=== PATIENT | male | born 2005 | race Two or more races ===

== ENCOUNTER 2024-07-26 09:04 | Emergency (ER) | payer SELFPAY ==
[2024-07-26 09:17] VITALS: BP 135/74; PULSE 84; RESP 16; TEMP 37.2; O2SAT 98; BMI 28.7
--- NOTE | 2024-07-26 09:26 | XR_ITS ---
Examination: Testicular sonography complete Technique: Grayscale sonographic images testes, assessment arterial inflow venous outflow Doppler spectral analysis, flow analysis Exam date and time: July 26, 2024 1030 hrs. Indications: Injury to the testicles this morning at work with left testicular pain Findings: Right testis 4.2 x 2.2 x 3.4 cm Epididymis 1.2 cm Arterial flow testicle. No testicular mass Mild hydrocele Left testis 4.8 x 2.4 x 3.2 cm Epididymis 11 mm Left epididymal cysts, the largest 3 mm Arterial flow to the testicle. No testicular mass Mild hydrocele Moderate varicocele Point region Impression: No testicular torsion or testicular mass Moderate left varicocele
[2024-07-26] MEDS: KETOROLAC INJ 60 MG/2 ML VIAL IM (09:45)
--- NOTE | 2024-07-26 09:56 | EDRME_ITS ---
Rapid Medical Screening Exam E Arrival date/time: 07/26/24 09:04 This is a 18-year-old male that comes into the emergency room with complaints of trauma to his testicle. Patient states that a cart at work got loose and hit him in his testicle region. Patient states he has pain to his left testicle. Patient was seen at the [facility] and was told to come here today because of left testicular swelling and they wanted an ultrasound. Patient denies any other trauma. Patient denies any past medical history. I have greeted and performed a focused initial assessment of this patient. Initial appropriate labs ordered at this time. A comprehensive ED assessment and evaluation of the patient and analysis of all test and completion of medical decision making process will be conducted by additional ED provider. Chief Complaint: Urogenital-Male Time Seen by Provider: 07/26/24 09:06 Vital signs: Vital Signs Temperature 98.9 F 07/26/24 09:17 Pulse Rate 84 07/26/24 09:17 Respiratory Rate 16 07/26/24 09:17 Blood Pressure 135/74 H 07/26/24 09:17 Pulse Oximetry (%) 98 07/26/24 09:17 Oxygen Delivery Method Room Air 07/26/24 09:17
[2024-07-26 10:01] LABS: Collection Type, Urine Voided; Squamous Epithelial Cell,Urine 0 /hpf (0-5)
[2024-07-26 10:59] LABS: Bilirubin,Urine Negative (Negative); Blood,Urine Negative (Negative); Clarity,Urine Clear (Clear/Hazy); Color,Urine Lt-Yellow (Lt Yel-Yel); Culture Indicated,Urine Not Indicated; Glucose, Urine Negative (Negative); Ketones,Urine Negative (Negative); Leukocyte Esterase,Urine Negative (Negative); Nitrite,Urine Negative (Negative); Protein,Urine Negative (Neg - Trace); RBC,Urine 1 /hpf (0-3); Specific Gravity,Urine 1.013 (1.001-1.035); Urobilinogen,Urine Negative mg/dL (0.0-1.0); WBC,Urine < 1 /hpf (0-5)
--- NOTE | 2024-07-26 12:13 | PD.EDMALE ---
ED Male Genitalurinary RME/HPI General Chief complaint: Urogenital-Male Stated complaint: Swollen left testicle since this morning Time Seen by Provider: 07/26/24 09:06 Arrival date/time: 07/26/24 09:04 RME / HPI RME / HPI Narrative: 18-year-old male that comes into the emergency room with complaints of trauma to his testicle. Patient states that a cart at work got loose and hit him in his testicle region. Patient states he has pain to his left testicle. Patient was seen at the [facility] and was told to come here today because of left testicular swelling and they wanted an ultrasound. Patient denies any other trauma. Patient denies any past medical history. Patient denies any dysuria. Related Data Previous Rx's ?Medication ?Instructions ?Recorded ibuprofen 800 mg tablet 800 mg PO TID PRN pain #30 tabs 07/26/24 Allergies Allergy/AdvReac Type Severity Reaction Status Date / Time No Known Allergies Allergy Verified 07/26/24 09:10 Review of Systems Review of Systems Narrative Review of Systems: Review of system reviewed and within normal limits except mentioned in HPI ED Exam Narrative Physical exam: VITAL SIGNS: Reviewed. GENERAL APPEARANCE: Alert and interactive, follows commands, no acute distress, HEAD AND FACE: Non-traumatic. ENT: PERRL, pink conjunctivitis, eyelid no trauma, Mucous membrane moist. NECK: Supple, nontender, no nuchal rigidity. CHEST: No tenderness, no crepitus, no paradoxical movement, no retractions. LUNGS: Clear, well ventilated, symmetric, no rales, no wheezing, no ronchi, no stridor, good breath sounds bilaterally. HEART: Regular rate, regular rhythm, no murmur, no gallops. ABDOMEN: Soft, positive bowel sounds, nondistended, no guarding, nontender, no rebound, no masses, RECTAL: Deferred. GENITAL: No bruising no swelling mild tenderness noted on the left testicle, no redness NEUROLOGICAL: Gross motor function intact sensory function intact, Appropriate for age. MUSCULOSKELETAL: low back nontender, full range of motion. EXTREMITIES: Nontender, full range of motion. SKIN: Color pink, dry, no rash, no lacerations, no abrasions, no contusions. LYMPHATICS: Deferred. Course Quality Measures none Orders Category Date Time Status US testicular Stat Exams 07/26/24 09:26 Taken Urinalysis, C/S if Indicated Stat Lab 07/26/24 09:47 Completed Ketorolac Inj [Toradol Inj] Med 07/26/24 09:31 Discontinued 60 mg IM X1 ONE Vital Signs Vital signs: Vital Signs Temperature 98.9 F 07/26/24 09:17 Pulse Rate 84 07/26/24 09:17 Respiratory Rate 16 07/26/24 09:17 Blood Pressure 135/74 H 07/26/24 09:17 Pulse Oximetry (%) 98 07/26/24 09:17 Oxygen Delivery Method Room Air 07/26/24 09:17 Urogenital - Male MDM Narrative MDM Narrative:: 18-year-old male that comes into the emergency room with complaints of trauma to his testicle. Patient states that a cart at work got loose and hit him in his testicle region. Patient states he has pain to his left testicle. Patient was seen at the [facility] and was told to come here today because of left testicular swelling and they wanted an ultrasound. Patient denies any other trauma. Patient denies any past medical history. Patient denies any dysuria. Ultrasound of the testicles showed mild hydrocele otherwise unremarkable urinalysis no UTI Results discussed with the patient. Patient appears nontoxic and hemodynamically stable. Patient discharged home and instructed to follow-up with primary care provider in 24 to 48 hours. Instructed to return to the emergency department immediately if worsening of symptoms Patient data External records reviewed:: None Clinical information provided by:: none Social determinants that could affect healthcare access:: none Patient has the following chronic illnesses:: None How is presenting disease/condition affected by chronic disease/condition?: no chronic disease Evaluation data The following diagnostics were reviewed and interpreted by me:: lab results and radiology exam(s) Lab and/or radiology exams considered but not ordered:: None Interpretation Summary: See results in MDM Medications / Prescriptions Medications or Prescriptions considered but not ordered:: None Medication administrations:: Medication Administration History Discontinued Medications Ketorolac Tromethamine (Ketorolac Inj 60 Mg/2 Ml Vial) 60 mg IM X1 ONE Stop: 07/26/24 09:32 Last Admin: 07/26/24 09:45 Dose: 60 mg Documented By: ED Toradol IM Consultations Consultation(s) initiated? (list below): No Diagnosis Urogenital Male Differential Diagnosis: urinary tract infection, epididymitis and other (Testicular contusion, testicular pain) Most likely diagnosis given after review of the tests above:: Testicular pain, hydrocele Admission Indicated Admission indicated?: not indicated Admission Request Was there a request for admission?: No Disposition Plan Disposition Plan: Discharge Discharge Attestation Discharge Attestation: The patient was given an opportunity to ask questions and understood the discharge instructions. Discharge instructions specifically effects, indications for sooner follow up or return to the emergency department, and the expected course of current diagnosis. Patient condition: Stable Discharge Plan Plan Patient Disposition: HOME (Self Care) Disposition Comment: STABLE Prescriptions/Referrals Prescriptions/Med Rec: New ibuprofen 800 mg tablet 800 mg PO TID PRN (Reason: pain) Qty: 30 0RF Referrals: Joe Castillo MD [Primary Care Provider] - In 1 week Problem List Clinical Impression: Acute hydrocele, Pain in testicle Patient/Caregiver Discharge Instructions Discharge Activity: activity as tolerated Education Materials: ED Hydrocele, Type Not Specified Additional Instructions: Thank you for the opportunity for serving you today. You are stable for discharged . You are advised to: Follow-up with your PCP in 1 to 2 days and asked for referral to urologist Return to ED for worsening of symptoms Increase oral fluids Take medication as prescribed Print Language: Monegasque Stand Alone Forms: Aubrie Award Info., Work/School Release, Patient Portal Info Letter CAITY/CARIDAD Supervising Physician CARROLL Supervising Physician: MD Ema
--- NOTE | 2024-07-26 12:51 | PRELIM_ITS ---
Ultrasound of the scrotum. July 26, 2024 1030 hours Clinical history: Swelling due to trauma Comparison: None. Technique: Real-time ultrasound was performed using Duplex scanning including arterial inflow, venous outflow, color and spectral Doppler analysis of both testes. Findings: Right: The right testicle measures 4.2 x 3.4 x 2.2 cm and demonstrates normal echogenicity and Doppler flow signal. The right epididymal head measures 1.2 x 0.8 x 1 cm. There is small hydrocele. Left: The left testicle measures 4.8 x 2.4 x 3.2 cm and demonstrates normal echogenicity and Doppler flow signal. The left epididymal head measures 1.1 x 1 x 0.5 cm and demonstrates small cysts, the largest measuring 3 x 3 x 2 mm. There is small hydrocele. Impression: No evidence of testicular torsion or epididymitis. Small left epididymal cysts. Small bilateral hydroceles. Report Electronically Signed By: Dhruv Jones 07/26/2024 12:50:38 PM [EST]
== END 2024-07-26 12:34 | disposition home or self-care (01) ==
PROVIDERS: Nurse Practitioner Family; Emergency Provider Emergency Medicine; PCP Family Medicine
DX: N43.3 Hydrocele, unspecified (principal); S39.94XA Unspecified injury of external genitals, initial encounter; W22.8XXA Striking against or struck by other objects, initial encounter; Y93.89 Activity, other specified; Y99.0 Civilian activity done for income or pay
CPT/HCPCS: 76870; 81001; 99284; J1885